=== PATIENT | male | born 1950 | race Caucasian/White ===

== ENCOUNTER 2017-05-23 11:12 | Emergency (ER) | payer OTHER, MEDICARE ==
[~2017-05-23] VITALS: Ht 172.7 cm; Wt 77.3 kg
[2017-05-23] MEDS ORDERED: ASPI81TA85 PO (11:35)
[2017-05-23] MEDS ORDERED: BELS1TAB2 (11:36)
[2017-05-23] MEDS ORDERED: METF750T (11:36)
[2017-05-23] MEDS ORDERED: JANU100T (11:36)
[2017-05-23] MEDS ORDERED: FLOM5CAP PO (11:36)
[2017-05-23] MEDS ORDERED: FINA5TAB2 (11:36)
[2017-05-23] MEDS ORDERED: ROSU20TA (11:36)
[2017-05-23] MEDS ORDERED: KETOROLAC 30 MG/ML VIAL (J1885) IV ONE (11:45)
[2017-05-23 12:11] LABS: BASO % 0.1 % (0.0-1.0); EOS % 0.3 % (0.0-3.0); LARGE UNSTAINED CELL % 0.3 % (0.0-4.0); LYMPH # 0.7 K/mm3 (1.5-4.5); LYMPH % 6.1 % (24.0-44.0); MEAN CORPUSCULAR HEMOGLOBIN 30.2 pg (27.0-33.0); MEAN CORPUSCULAR VOLUME 88.7 fl (80.0-96.0); MONO # 0.4 K/mm3 (0.0-0.8); MONO % 3.1 % (0.0-5.0); NEUTROPHILS # 10.2 K/mm3 (1.8-7.7); NEUTROPHILS % 90.1 % (36.0-66.0); PLATELET COUNT, AUTOMATED 198 k/mm3 (150-450); RED CELL DISTRIBUTION WIDTH 13.1 % (11.5-14.5); WHITE BLOOD COUNT 11.3 K/mm3 (4.0-10.0)
[2017-05-23 12:30] LABS: ALBUMIN 3.8 GM/DL (3.2-5.2); ALBUMIN/GLOBULIN RATIO 1.19 (1.00-1.93); BILIRUBIN,DIRECT 0.1 MG/DL (0.0-0.2); BILIRUBIN,TOTAL 0.5 MG/DL (0.2-1.0); CALCIUM LEVEL 9.8 MG/DL (8.8-10.2); CREATININE FOR GFR 1.37 MG/DL (0.70-1.30); GLOMERULAR FILTRATION RATE 55.5 (>49); POTASSIUM SERUM 4.2 MEQ/L (3.5-5.1)
[2017-05-23] MEDS ORDERED: NS 1,000 ML IV ONE (12:45)
[2017-05-23] MEDS ORDERED: NORCOTAB PO (13:44)
[2017-05-23] MEDS ORDERED: ZOFR4TAB3 PO (13:45)
--- NOTE | 2017-05-23 14:05 | REP ---
REASON: Right-sided pain: COMPARISON: None. There is a 7 mm size calculus in the proximal right ureter causing mild hydronephrosis and hydroureter. There are multiple nonobstructing bilateral renal calculi. There is evidence of bilateral renal cortical scarring and perinephric stranding which is chronic. There are no urinary bladder calcifications. 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 Limited evaluation of the solid intra-abdominal organs show no gross abnormalities. Limited evaluation of the pancreas and adrenal glands show no gross abnormalities. There is cholelithiasis. Limited evaluation of the intra-abdominal and intrapelvic bowel loops and their mesenteries show no gross abnormalities. No free fluid or free air is seen in the abdomen or pelvis. Bone window technique through the examination shows chronic changes involving the osseous structures. The lung bases are clear. IMPRESSION: 1. 7 mm sized proximal right ureterolith with resultant findings as described above. 2. Bilateral nonobstructing additional nephroliths. 3. Cholelithiasis. 4. Other findings as described above. Signed by Victorino Graff DO 05/23/2017 04:41 P
[2017-05-23 14:08] VITALS: BP 141/76
== END 2017-05-23 14:11 | disposition home or self-care (01) ==
LOC: M ED 11:12 → EDBD 11:12 → M ED 14:11
DX: N20.1 Calculus of ureter (principal); N20.0 Calculus of kidney; N13.30 Unspecified hydronephrosis; R74.8 Abnormal levels of other serum enzymes; K80.20 Calculus of gallbladder without cholecystitis without obstruction; E11.9 Type 2 diabetes mellitus without complications; R11.0 Nausea; N40.0 Benign prostatic hyperplasia without lower urinary tract symptoms; Z87.442 Personal history of urinary calculi; Z79.899 Other long term (current) drug therapy; Z79.82 Long term (current) use of aspirin; Z79.84 Long term (current) use of oral hypoglycemic drugs
CPT/HCPCS: 36415; 74176; 80048; 80076; 81001; 82150; 83605; 83690; 85025; 87040; 87086; 93041; 96361; 96374; 99284; J1885

== ENCOUNTER → 2017-07-16 | Outpatient (REF) | payer MEDICARE, OTHER ==
[~2017-07-16] MED LIST: ASPI81TA85 PO; BELS1TAB2; FINA5TAB2; FLOM5CAP PO; JANU100T; METF750T; NORCOTAB PO; ROSU20TA; ZOFR4TAB3 PO
[2017-07-16 13:51] LABS: AMYLASE 244 U/L (25-115)
== END ==
LOC: M LAB REF 12:36
PROVIDERS: ATTEND Internal Medicine
DX: Z01.812 Encounter for preprocedural laboratory examination (principal); R10.9 Unspecified abdominal pain; R82.99 Other abnormal findings in urine

== ENCOUNTER → 2018-04-08 | Outpatient (REF) | payer MEDICARE, OTHER ==
[2018-04-10 15:11] LABS: PSA TOTAL 0.8 ng/mL (0.0-4.0)
== END ==
LOC: M LAB REF 11:47
DX: R97.20 Elevated prostate specific antigen [PSA] (principal)
CPT/HCPCS: 84154

== ENCOUNTER → 2019-04-25 | Outpatient (REF) | payer MEDICARE, OTHER ==
[~2019-04-25] MED LIST changes: +FLOM0.4C39 PO; -FLOM5CAP PO; +HYDR-3715 PO; -NORCOTAB PO; -ROSU20TA; +ROSU20TA4; +ZOFR4TAB14 PO; -ZOFR4TAB3 PO
== END ==
LOC: M LAB REF 13:09
PROVIDERS: ATTEND Internal Medicine
DX: R68.82 Decreased libido (principal)

== ENCOUNTER → 2019-06-01 | Outpatient (REF) | payer MEDICARE, OTHER ==
[~2019-06-01] MED LIST changes: -ROSU20TA4; +ROSU20TA5
== END ==
LOC: M LAB REF 17:10
PROVIDERS: ATTEND Nurse Practitioner Adult Health
DX: R68.82 Decreased libido (principal)

== ENCOUNTER → 2020-07-25 | Outpatient (REF) | payer MEDICARE, OTHER ==
[~2020-07-25] MED LIST changes: -ASPI81TA85 PO; +ASPI81TA86 PO; -METF750T; +METF750T36
== END ==
LOC: M LAB REF 12:44
PROVIDERS: ATTEND Internal Medicine
DX: R68.82 Decreased libido (principal)

== ENCOUNTER → 2021-07-04 | Outpatient (REF) | payer MEDICARE, OTHER | LOC: M LAB REF 11:26 | PROVIDERS: ATTEND Internal Medicine | DX: R68.82 Decreased libido (principal) ==

== ENCOUNTER 2022-03-25 08:26 | Emergency (ER) | payer MEDICARE, OTHER ==
[~2022-03-25] VITALS: Ht 172.7 cm; Wt 75.0 kg
[2022-03-25] MEDS ORDERED: MORPHINE 4 MG/ML 1ML VIAL/SYRINGE IV ONE (08:45)
[2022-03-25] MEDS ORDERED: KETOROLAC 30 MG/ML 1ML VIAL IV ONE (08:45)
[2022-03-25] MEDS ORDERED: ONDANSETRON 4MG/2ML VIAL IV ONE (08:45)
[2022-03-25 10:15] VITALS: BP 146/80
[2022-03-25] MEDS ORDERED: CYCL5TAB PO (10:32)
[2022-03-25] MEDS ORDERED: IBUP-1022 PO (10:33)
[2022-03-25] MEDS ORDERED: PERC5TAB12 PO (10:34)
== END 2022-03-25 10:55 | disposition home or self-care (01) ==
LOC: M ED 08:26 → EDBD 08:26 → M ED 10:55
DX: S39.012A Strain of muscle, fascia and tendon of lower back, initial encounter (principal); X50.0XXA Overexertion from strenuous movement or load, initial encounter; Y92.9 Unspecified place or not applicable; Y93.9 Activity, unspecified; Y99.9 Unspecified external cause status; M43.06 Spondylolysis, lumbar region; E11.9 Type 2 diabetes mellitus without complications; I10 Essential (primary) hypertension; E78.5 Hyperlipidemia, unspecified; Z87.442 Personal history of urinary calculi; Z79.82 Long term (current) use of aspirin; Z79.899 Other long term (current) drug therapy
CPT/HCPCS: 72110; 80047; 96374; 96375; 99284; J1885; J2270; J2405

== ENCOUNTER → 2022-07-23 | Outpatient (REF) | payer MEDICARE, OTHER ==
[~2022-07-23] MED LIST changes: +CYCL5TAB PO; +IBUP-1022 PO; +PERC5TAB12 PO
== END ==
LOC: M LAB REF 13:19
PROVIDERS: ATTEND Internal Medicine
DX: R68.82 Decreased libido (principal)